=== PATIENT | male | born 1940 | race Caucasian/White ===

== ENCOUNTER → 2020-11-06 | Outpatient (CLI) | payer MEDICARE, OTHER ==
[2020-11-06 07:43] LABS: BASOPHILS % (AUTO) 1 % (0-1); EOSINOPHILS % (AUTO) 4 % (1-7); LYMPHOCYTES % (AUTO) 23 % (22-44); MEAN CORPUSCULAR HEMOGLOBIN 33.4 pg (27.5-34.5); MEAN CORPUSCULAR HGB CONC 33.7 g/dL (33.2-36.2); MEAN PLATELET VOLUME 8.3 fL (7.4-10.4); MONOCYTES % (AUTO) 12 % (2-9); NEUTROPHILS % (AUTO) 60 % (42-75); PLATELET COUNT 256 x10^3/uL (130-400); RED BLOOD COUNT 4.55 x10^6/uL (4.38-5.82)
[2020-11-06 07:52] LABS: INTERNATIONAL NORMALIZED RATIO 1.01 (0.93-1.1); PROTHROMBIN TIME 10.8 Seconds (9.6-11.5)
[2020-11-06 07:57] LABS: ALBUMIN 3.2 g/dL (3.4-5.0); ANION GAP 4 mmol/L (5-15); CALCIUM 9.2 mg/dL (8.5-10.1); CHLORIDE 106 mmol/L (98-107)
[2020-11-06 08:03] LABS: ALANINE AMINOTRANSFERASE 33 U/L (12-78); ALKALINE PHOSPHATASE 58 U/L (45-117); BILIRUBIN,TOTAL 1.2 mg/dL (0.2-1.0); CHOL/HDL RATIO 1.5; CHOLESTEROL, TOTAL 101 mg/dL (140-239); HDL CHOL % 67 % (26-37); HDL CHOLESTEROL (DIRECT) 68 mg/dL (40-60); LDL CHOLESTEROL,CALCULATED 29 mg/dL (54-169); LDL/HDL RATIO 0.4 (0.5-3.0); TOTAL PROTEIN 7.4 g/dL (6.4-8.2); TRIGLYCERIDES 22 mg/dL (50-200); VLDL CHOLESTEROL < 5 mg/dL (0-25)
== END | disposition home or self-care (01) ==
LOC: LAB 07:12
PROVIDERS: ATTEND Internal Medicine
DX: Z01.818 Encounter for other preprocedural examination (principal); E11.9 Type 2 diabetes mellitus without complications
CPT/HCPCS: 36415; 80053; 80061; 83036; 85025; 85610; 85730

== ENCOUNTER 2020-11-21 13:32 | Outpatient (CLI) | payer MEDICARE, OTHER ==
[2020-11-21] MEDS ORDERED: OMNIPAQUE 350 MG/ML, 75ML BOTTLE ONE (14:24)
[2020-12-12] MEDS ORDERED: OLOP2.5D12 OP (14:45)
[2020-12-12] MEDS ORDERED: ATOR10TA9 PO (14:45)
[2020-12-12] MEDS ORDERED: ASPI-963 PO (14:45)
[2020-12-12] MEDS ORDERED: MONT10TA17 PO (14:45)
[2020-12-12] MEDS ORDERED: MAGN300C PO (14:45)
[2020-12-12] MEDS ORDERED: MIRA50TA PO (14:45)
[2020-12-12] MEDS ORDERED: OMEP-110 PO (14:45)
[2020-12-17] MEDS ORDERED: ACET325T26 PO (17:05)
[2020-12-17] MEDS ORDERED: POLY17PO5 PO (17:05)
[2020-12-17] MEDS ORDERED: LEVE500T53 PO (17:05)
[2020-12-17] MEDS ORDERED: DEXA4TAB66 PO (17:05)
[2020-12-18] MEDS ORDERED: ACID1TAB7 PO (10:10)
[2020-12-18] MEDS ORDERED: SENN-211 PO (10:10)
== END 2020-11-21 23:59 | disposition home or self-care (01) ==
LOC: CFH 13:32
PROVIDERS: ATTEND Internal Medicine
DX: J84.9 Interstitial pulmonary disease, unspecified (principal); R91.8 Other nonspecific abnormal finding of lung field
CPT/HCPCS: 71260; Q9967

== ENCOUNTER 2020-12-12 14:31 | Inpatient (IN) | payer MEDICARE, OTHER ==
[~2020-12-12] VITALS: Ht 177.8 cm; Wt 61.4 kg
[2020-12-18 07:40] VITALS: BP 167/74
== END 2020-12-18 11:40 | DRG 23 ==
LOC: ED 16:28 → EDIP 17:10 → CCU 12-13 19:30 → 4WST 12-15 13:20
PROVIDERS: ADMIT Internal Medicine; ATTEND Internal Medicine
PROC: 00C70ZZ Extirpation of Matter from Cerebral Hemisphere, Open Approach (ICD-10-PCS; principal; 2020-12-14)
PROC: 00U10KZ Supplement Cerebral Meninges with Nonautologous Tissue Substitute, Open Approach (ICD-10-PCS; 2020-12-14)
DX: I61.1 Nontraumatic intracerebral hemorrhage in hemisphere, cortical (principal); G93.41 Metabolic encephalopathy; E87.1 Hypo-osmolality and hyponatremia; F03.90 Unspecified dementia, unspecified severity, without behavioral disturbance, psychotic disturbance, mood disturbance, and anxiety; N40.0 Benign prostatic hyperplasia without lower urinary tract symptoms; K21.9 Gastro-esophageal reflux disease without esophagitis; E78.5 Hyperlipidemia, unspecified; N32.81 Overactive bladder; D75.89 Other specified diseases of blood and blood-forming organs; M48.00 Spinal stenosis, site unspecified; E11.9 Type 2 diabetes mellitus without complications; Z96.1 Presence of intraocular lens; I68.0 Cerebral amyloid angiopathy; R13.10 Dysphagia, unspecified; Z20.822 Contact with and (suspected) exposure to COVID-19; R09.89 Other specified symptoms and signs involving the circulatory and respiratory systems; T38.0X5A Adverse effect of glucocorticoids and synthetic analogues, initial encounter; R53.81 Other malaise; Y92.89 Other specified places as the place of occurrence of the external cause